=== PATIENT | female | born 1960 | race Two or more races ===

== ENCOUNTER → 2024-08-24 | Outpatient (CLI) | payer MEDICAID, SELFPAY ==
--- NOTE | 2024-08-24 10:36 | XR_ITS ---
Examination: CT abdomen, without intravenous contrast. CT pelvis, without intravenous contrast. CT abdomen, with intravenous contrast. CT pelvis, with intravenous contrast. 2-D sagittal coronal reconstructions. Date and time of exam:August 24, 2024 1114 hours Comparison January 22, 2024 INDICATIONS: 27 mm fat-containing right adrenal tumor on CT abdomen January 22, 2024, left upper abdominal pain one year, left kidney surgery one year ago CTDI: vol (mGy) 13.7 DLP: (mGycm) 722 Technique: Multiple 3.0 axial images of the abdomen and pelvis without intravenous contrast, 3.0 mm slice thickness. Multiple 3.0 postcontrast images abdomen and pelvis also obtained, post intravenous injection 60 cc Isovue-370 2-D sagittal and coronal reconstructions. Low dose protocols were performed. One or more of the following dose reduction techniques were used; automated exposure control, adjustment of the mA and/or KV according to patient size, use of iterative reconstruction technique. Findings: Diffuse fatty infiltration throughout the liver Contracted gallbladder No splenic or pancreatic mass Stable 21 mm right adrenal adenoma No hydronephrosis or renal calculi Aorta normal size Normal appendix No bowel obstruction No diverticulitis Urinary bladder intact IMPRESSION: Stable benign 21 mm right adrenal adenoma
[2024-08-24 11:05] LABS: Alanine Aminotransferase 13 U/L (10-49); Albumin, Serum 4.7 gm/dL (3.4-4.8); Albumin/Globulin Ratio 1.9 (1.2-2.2); Alkaline Phosphatase 101 U/L (46-116); Anion Gap 6 (7-16); Aspartate Amino Transferase 13 U/L (0-34); BUN/Creatinine Ratio 11 Ratio (12-20); Bilirubin,Total 0.5 mg/dL (0.3-1.2); Blood Urea Nitrogen 9 mg/dL (9-23); Calcium 9.4 mg/dL (8.3-10.6); Calcium (Corrected) 9.4 mg/dL (8.5-10.1); Carbon Dioxide 26.6 mMol/L (20.0-31.0); Chloride 107 mMol/L (98-107); Creatinine (Component) 0.8 mg/dL (0.6-1.3); Globulin 2.5 gm/dL (2.3-3.5); Glucose 94 mg/dL (74-106); Osmolality,Calculated 278 (275-295); Potassium 3.7 mMol/L (3.4-5.1); Sodium 140 mMol/L (136-145); Total Protein 7.2 gm/dL (5.7-8.2); eGFR > 60 See Note
== END | disposition home or self-care (01) ==
LOC: CCTX 09:41 → COPL 09:52
PROVIDERS: PCP Family Medicine; Referring Provider Specialist; Visit Provider Radiology Diagnostic Radiology
DX: D35.01 Benign neoplasm of right adrenal gland (principal); E89.6 Postprocedural adrenocortical (-medullary) hypofunction
CPT/HCPCS: 36415; 74178; 80053; A4649; Q9967

== ENCOUNTER → 2024-10-05 | Outpatient (CLI) | payer MEDICAID, SELFPAY ==
--- NOTE | 2024-10-05 12:00 | XR_ITS ---
Examination: Breast ultrasound, unilateral, right complete Date and time of exam: October 05, 2024 1203 hours INDICATIONS: Intermittent right breast pain one year, mammogram January 04, 2024 focus architectural distortion retroareolar region right breast Technique: Real-time hendricks scale ultrasonographic imaging performed right breast including all 4 quadrants as well as nipple retroareolar and axillary region. Findings: No cystic or solid mass IMPRESSION: BI-RADS Category 1: Negative study
--- NOTE | 2024-10-05 12:10 | XR_ITS ---
Examination: Diagnostic digital mammography, unilateral, right Computer aided detection 3-D breast Tomosynthesis, unilateral Date and time of exam: October 05, 2024 at 1218 hours INDICATIONS: Mammogram January 04, 2024 architectural distortion on the right breast CC view Technique: Nonmagnified MLO, CC views of the right breast have been obtained, reconstructed from 3-D Tomosynthesis images. R2 computer aided detection program utilized for evaluation of suspicious masses and/or abnormal calcifications. 3-D Tomosynthesis images obtained. Findings: Scattered areas of fibroglandular density No suspicious lesion noted on this study Impression: BI-RADS category 2: Benign findings Recommend yearly follow-up mammography
== END | disposition home or self-care (01) ==
LOC: CDIM 10:41
PROVIDERS: PCP Physician Assistant; Referring Provider Specialist; Visit Provider Specialist
DX: R92.321 Mammographic fibroglandular density, right breast (principal)
CPT/HCPCS: 76641; 77061; 77065; G0279

== ENCOUNTER → 2024-12-23 | Outpatient (CLI) | payer MEDICAID, SELFPAY ==
--- NOTE | 2024-12-23 10:45 | XR_ITS ---
Examination: Screening digital mammography, bilateral Computer aided detection 3-D breast Tomosynthesis, bilateral Date and time of exam: January 02, 2025 1043 hours Compared to mammograms dating to April 16, 2022 Indication: Screening Technique: Nonmagnified MLO, CC views of the breasts to been obtained, reconstructed from 3-D Tomosynthesis images. R2 computer aided detection program utilized for evaluation of suspicious masses and/or abnormal calcifications. 3-D Tomosynthesis images obtained. Findings: Scattered areas of fibroglandular density. Benign calcifications. Stable scar formation left breast consistent with patient's history treated left breast cancer No interval suspicious masses Impression: BI-RADS category II: Benign Findings. Recommend 1 year follow-up mammogram.
== END | disposition home or self-care (01) ==
LOC: CDIM 10:30
PROVIDERS: PCP Physician Assistant; Referring Provider Specialist; Visit Provider Specialist
DX: Z12.31 Encounter for screening mammogram for malignant neoplasm of breast (principal); R92.323 Mammographic fibroglandular density, bilateral breasts; R92.1 Mammographic calcification found on diagnostic imaging of breast
CPT/HCPCS: 77063; 77067

== ENCOUNTER → 2025-01-23 | Outpatient (BNVA) | payer MEDICAID, SELFPAY | END | disposition home or self-care (01) | PROVIDERS: PCP Physician Assistant; Referring Provider Physician Assistant; Visit Provider Urology | DX: D36.10 Benign neoplasm of peripheral nerves and autonomic nervous system, unspecified (principal); I10 Essential (primary) hypertension; E66.9 Obesity, unspecified; Z68.26 Body mass index [BMI] 26.0-26.9, adult | CPT/HCPCS: 81003; 99212; G0463 ==

== ENCOUNTER → 2025-05-22 | Outpatient (CLI) | payer MEDICAID, SELFPAY ==
--- NOTE | 2025-05-22 12:17 | XR_ITS ---
Examination: Pelvic ultrasound, transabdominal, complete Technique: Transabdominal ultrasound of the pelvis performed using grayscale imaging Date and time of exam: May 22, 2025 1230 hours INDICATIONS: Left lower pelvic pain 2 months FINDINGS: Absent uterus Absent ovaries No free fluid in the pelvis No pelvic mass IMPRESSION: No free fluid in the pelvis, no pelvic mass
== END | disposition home or self-care (01) ==
LOC: CDIM 12:06
PROVIDERS: PCP Physician Assistant; Referring Provider Obstetrics & Gynecology Female Pelvic Medicine and Reconstructive Surgery; Visit Provider Obstetrics & Gynecology Female Pelvic Medicine and Reconstructive Surgery
DX: R10.2 Pelvic and perineal pain (principal)
CPT/HCPCS: 76856

== ENCOUNTER → 2025-08-07 | Outpatient (CLI) | payer MEDICAID, SELFPAY ==
[2025-08-01 14:58] LABS: Albumin, Serum 4.7 gm/dL (3.4-4.8); Anion Gap 11 (7-16); BUN/Creatinine Ratio 14 Ratio (12-20); Blood Urea Nitrogen 11 mg/dL (9-23); Calcium 9.3 mg/dL (8.3-10.6); Calcium (Corrected) 9.3 mg/dL (8.5-10.1); Carbon Dioxide 26.8 mMol/L (20.0-31.0); Chloride 105 mMol/L (98-107); Creatinine (Component) 0.8 mg/dL (0.6-1.3); Glucose 93 mg/dL (74-106); Osmolality,Calculated 284 (275-295); Phosphorous 4.2 mg/dL (2.4-5.1); Potassium 4.0 mMol/L (3.4-5.1); Sodium 143 mMol/L (136-145); eGFR > 60 See Note
--- NOTE | 2025-08-07 11:00 | XR_ITS ---
Examination: CT abdomen, without intravenous contrast. CT abdomen, with intravenous contrast. Sagittal and coronal 2-D reconstructions. Time of exam: August 07, 2025, 1144 hours, comparison August 24, 2024 Onset left upper abdominal pain today, history 21 mm right adrenal adenoma on CT study Emverm 03/2024 CTDI: vol (mGy) 14 DLP: (mGycm) 492 Technique: Multiple 3.0 mm axial noncontrast images of the abdomen have been obtained. Multiple 3.0 mm axial images post administration 60 cc Isovue-370 intravenous contrast have been obtained. Sagittal and coronal 3-D reconstructions have been obtained. Previous study administration 100 mg Solu-Cortef Low dose protocols were performed. One or more of the following dose reduction techniques were used; automated exposure control, adjustment of the mA and/or KV according to patient size, use of iterative reconstruction technique. Findings: No focal liver or splenic lesions No gallstones No pancreatic mass Stable fat-containing right adrenal nodule 22 mm No renal or ureteral calculi, no hydronephrosis Aortic calcification no aneurysmal dilatation Normal appendix No bowel obstruction IMPRESSION: Stable right adrenal adenoma
[2025-08-07 11:25] VITALS: BP 173/104; PULSE 73; RESP 21; TEMP 36.4; O2SAT 97
[2025-08-07] MEDS: HYDROCORTISONE SOD SUCC INJ 100 MG 2 ML VIAL IV (11:34)
[2025-08-07 11:50] VITALS: BP 163/81; PULSE 79; RESP 22; O2SAT 96
[2025-08-07 12:00] VITALS: BP 161/84; PULSE 73; RESP 20; O2SAT 95
[2025-08-07 12:15] VITALS: BP 152/93; PULSE 64; RESP 20; O2SAT 96
== END | disposition home or self-care (01) ==
LOC: SCAT 10:20 → SDIM 11:31
PROVIDERS: PCP Physician Assistant; Referring Provider Specialist; Visit Provider Specialist
DX: D35.01 Benign neoplasm of right adrenal gland (principal)
CPT/HCPCS: 74170; A4649; J1720; Q9967